=== PATIENT | male | born 1960 | race Caucasian/White ===

== ENCOUNTER 2017-12-30 06:33 | Emergency (ER) | payer OTHER ==
[~2017-12-30] VITALS: Ht 167.6 cm; Wt 73.0 kg
[~2017-12-30 06:33] MED LIST: ATIVAN0.5 M1 PO; COL100 PO; MOTRIN800 MG PO; NOR10T PO
[2017-12-30 06:41] VITALS: Ht 167.6 cm; Wt 73.0 kg
[2017-12-30 07:12] VITALS: BP 145/98
== END 2017-12-30 07:12 | disposition home or self-care (01) ==
LOC: ED 06:33
DX: R21 Rash and other nonspecific skin eruption (principal)

== ENCOUNTER 2019-01-18 08:05 | Emergency (ER) | payer OTHER ==
[~2019-01-18] VITALS: Ht 172.7 cm; Wt 70.3 kg
[2019-01-18 08:08] VITALS: Ht 172.7 cm; Wt 70.3 kg
[2019-01-18 10:03] VITALS: BP 127/80
== END 2019-01-18 10:03 | disposition home or self-care (01) ==
LOC: ED 08:05
DX: S43.005A Unspecified dislocation of left shoulder joint, initial encounter (principal); X58.XXXA Exposure to other specified factors, initial encounter; Y93.89 Activity, other specified; Y92.89 Other specified places as the place of occurrence of the external cause; Y99.8 Other external cause status
CPT/HCPCS: J2405; J2704; J7030; Q0092